=== PATIENT | female | born 1945 | race Caucasian/White ===

== ENCOUNTER → 2020-11-23 | Outpatient (CLI) | payer MEDICARE, BC ==
[~2020-11-23] VITALS: Ht 157.5 cm; Wt 90.3 kg
[~2020-11-23] MED LIST: ASPIR 8181 MG PO; CALCIUM PO; CALTRATE 600 +1 EAC1 PO; LOPRESSOR 50 MG50 MG PO; LOPRESSOR50 MG PO; NORCO 10-325 T1 EACH PO; OMEPRAZOLE20 M2 PO; OXYCODONE HCL15 MG PO; PRILOSEC OTC20 MG PO; PROLIA INJ60 MG/1 ML SC; ROBAXIN-750750 MG PO; SYNTHROID 150150 MCG PO; SYNTHROID150 MCG PO; TYLENOL 500 MG500 MG PO; ZOLOFT100 MG PO; [UNRECOGNIZED DRUG - OTHER] PO
== END ==
LOC: OPSV 12:59
DX: M80.08XA Age-related osteoporosis with current pathological fracture, vertebra(e), initial encounter for fracture (principal)
CPT/HCPCS: 96372; J3111

== ENCOUNTER → 2020-12-21 | Outpatient (CLI) | payer MEDICARE, BC ==
[~2020-12-21] VITALS: Ht 157.5 cm; Wt 90.3 kg
== END ==
LOC: OPSV 13:48
DX: M81.0 Age-related osteoporosis without current pathological fracture (principal)
CPT/HCPCS: 96372; J3111

== ENCOUNTER → 2021-01-20 | Outpatient (CLI) | payer MEDICARE, BC ==
[~2021-01-20] VITALS: Ht 157.5 cm; Wt 90.3 kg
== END ==
LOC: OPSV 10:00
DX: M81.0 Age-related osteoporosis without current pathological fracture (principal); Z87.310 Personal history of (healed) osteoporosis fracture
CPT/HCPCS: 96372; J3111

== ENCOUNTER → 2021-02-16 | Outpatient (CLI) | payer MEDICARE, BC ==
[~2021-02-16] VITALS: Ht 157.5 cm; Wt 90.3 kg
== END ==
LOC: OPSV 12:57
DX: M80.00XA Age-related osteoporosis with current pathological fracture, unspecified site, initial encounter for fracture (principal)
CPT/HCPCS: 96372; J3111

== ENCOUNTER → 2021-03-16 | Outpatient (CLI) | payer MEDICARE, BC | LOC: OPSV 13:00 | DX: M80.00XA Age-related osteoporosis with current pathological fracture, unspecified site, initial encounter for fracture (principal) | CPT/HCPCS: 96372; J3111 ==

== ENCOUNTER → 2021-04-13 | Outpatient (CLI) | payer MEDICARE, BC | LOC: OPSV 12:47 | DX: M80.00XA Age-related osteoporosis with current pathological fracture, unspecified site, initial encounter for fracture (principal) | CPT/HCPCS: 96372; J3111 ==

== ENCOUNTER → 2021-05-11 | Outpatient (CLI) | payer MEDICARE, BC ==
[~2021-05-11] VITALS: Ht 157.5 cm; Wt 90.3 kg
== END ==
LOC: OPSV 13:00
DX: M80.00XA Age-related osteoporosis with current pathological fracture, unspecified site, initial encounter for fracture (principal)
CPT/HCPCS: 96372; J3111

== ENCOUNTER → 2021-06-08 | Outpatient (CLI) | payer MEDICARE, BC ==
[~2021-06-08] VITALS: Ht 157.5 cm; Wt 90.3 kg
[~2021-06-08] MED LIST changes: +MULTIVITAMIN1 EACH PO
== END ==
LOC: OPSV 13:00
DX: M80.00XA Age-related osteoporosis with current pathological fracture, unspecified site, initial encounter for fracture (principal)
CPT/HCPCS: 96372; J3111

== ENCOUNTER 2021-07-03 09:21 | Emergency (ER) | payer MEDICARE, BC ==
[~2021-07-03 09:21] MED LIST changes: -MULTIVITAMIN1 EACH PO
[2021-07-03 10:15] LABS: HEMOGLOBIN 12.2 gm/dl (12.3-15.3); RED BLOOD COUNT 4.38 M/UL (4.00-5.10); WHITE BLOOD COUNT 7.3 K/UL (4.5-11.0)
[2021-07-03 10:39] LABS: BUN/CREATININE RATIO 30 (0-10)
[2021-07-03] MEDS ORDERED: MULTIVITAMIN1 EACH PO (12:33)
== END 2021-07-03 12:40 | disposition home or self-care (01) ==
LOC: ER1 09:21
PROVIDERS: Emergency Medicine
DX: R20.2 Paresthesia of skin (principal); Z20.822 Contact with and (suspected) exposure to COVID-19; E03.9 Hypothyroidism, unspecified
CPT/HCPCS: 70450; 72125; 80053; 81001; 85025; 93005; 99284; U0002

== ENCOUNTER → 2021-07-13 | Outpatient (CLI) | payer MEDICARE, BC ==
[~2021-07-13] VITALS: Ht 157.5 cm; Wt 90.3 kg
[~2021-07-13] MED LIST changes: +MULTIVITAMIN1 EACH PO
== END ==
LOC: OPSV 12:49
DX: M81.0 Age-related osteoporosis without current pathological fracture (principal)
CPT/HCPCS: 96372; J3111

== ENCOUNTER → 2021-08-15 | Outpatient (CLI) | payer MEDICARE, BC ==
[~2021-08-15] VITALS: Ht 157.5 cm; Wt 90.3 kg
== END ==
LOC: OPSV 11:46
DX: M80.00XA Age-related osteoporosis with current pathological fracture, unspecified site, initial encounter for fracture (principal)
CPT/HCPCS: 96372; J3111

== ENCOUNTER → 2021-09-12 | Outpatient (CLI) | payer MEDICARE, BC | LOC: OPSV 11:33 | DX: Z53.9 Procedure and treatment not carried out, unspecified reason (principal) | CPT/HCPCS: 96372; J3111 ==

== ENCOUNTER → 2021-10-10 | Outpatient (CLI) | payer MEDICARE, BC ==
[~2021-10-10] VITALS: Ht 157.5 cm; Wt 90.3 kg
== END ==
LOC: OPSV 11:38
DX: M80.80XA Other osteoporosis with current pathological fracture, unspecified site, initial encounter for fracture (principal)
CPT/HCPCS: 96372; J3111

== ENCOUNTER → 2021-11-07 | Outpatient (CLI) | payer MEDICARE, BC ==
[~2021-11-07] VITALS: Ht 157.5 cm; Wt 90.3 kg
== END ==
LOC: OPSV 11:34
DX: M81.0 Age-related osteoporosis without current pathological fracture (principal)
CPT/HCPCS: 96372; J3111

== ENCOUNTER → 2021-12-05 | Outpatient (CLI) | payer MEDICARE, BC ==
[~2021-12-05] VITALS: Ht 157.5 cm; Wt 90.3 kg
== END ==
LOC: OPSV 11:41
DX: M81.0 Age-related osteoporosis without current pathological fracture (principal)
CPT/HCPCS: 96372; J3111

== ENCOUNTER → 2022-01-05 | Outpatient (CLI) | payer MEDICARE, BC ==
[~2022-01-05] VITALS: Ht 157.5 cm; Wt 90.3 kg
== END ==
LOC: OPSV 11:47
DX: M80.00XA Age-related osteoporosis with current pathological fracture, unspecified site, initial encounter for fracture (principal)
CPT/HCPCS: 96372; J3111

== ENCOUNTER → 2022-02-02 | Outpatient (CLI) | payer MEDICARE, BC ==
[~2022-02-02] VITALS: Ht 157.5 cm; Wt 90.3 kg
== END ==
LOC: OPSV 11:51
DX: M80.00XA Age-related osteoporosis with current pathological fracture, unspecified site, initial encounter for fracture (principal)
CPT/HCPCS: 96372; J3111

== ENCOUNTER → 2022-03-05 | Outpatient (CLI) | payer MEDICARE, BC ==
[~2022-03-05] VITALS: Ht 157.5 cm; Wt 90.3 kg
== END ==
LOC: OPSV 12:00
DX: M80.00XA Age-related osteoporosis with current pathological fracture, unspecified site, initial encounter for fracture (principal)
CPT/HCPCS: 96372; J3111

== ENCOUNTER → 2022-04-04 | Outpatient (CLI) | payer MEDICARE, BC | LOC: OPSV 11:41 | DX: M80.00XA Age-related osteoporosis with current pathological fracture, unspecified site, initial encounter for fracture (principal) | CPT/HCPCS: 96372; J3111 ==

== ENCOUNTER → 2022-05-02 | Outpatient (CLI) | payer MEDICARE, BC ==
[~2022-05-02] VITALS: Ht 157.5 cm; Wt 90.3 kg
== END ==
LOC: OPSV 11:42
DX: M81.0 Age-related osteoporosis without current pathological fracture (principal); Z87.310 Personal history of (healed) osteoporosis fracture
CPT/HCPCS: 96372; J3111